=== PATIENT | male | born 1980 | race Two or more races ===

== ENCOUNTER 2023-04-19 19:24 | Emergency (ER) | payer OTHER, MEDICAID ==
[~2023-04-19] VITALS: Ht 170.2 cm; Wt 90.3 kg
[2023-04-19 20:15] VITALS: BP 134/70
[2023-04-19] MEDS ORDERED: BACDST PO (22:03)
== END 2023-04-19 23:35 | disposition home or self-care (01) ==
LOC: ER 19:24
DX: L03.012 Cellulitis of left finger (principal); Q90.9 Down syndrome, unspecified
CPT/HCPCS: 11730